=== PATIENT | female | born 1985 | race Hispanic/Latino ===

== ENCOUNTER 2021-03-14 17:23 | Emergency (ER) | payer OTHER, SELFPAY ==
[2021-03-14] MEDS ORDERED: Ondansetron ODT 4 MG TAB ONE (19:05)
[2021-03-15 11:14] LABS: SARS-CoV-2 PCR by NAA Not Detected (NotDetected)
== END 2021-03-14 19:54 | disposition home or self-care (01) ==
LOC: ERS 17:23
DX: R11.2 Nausea with vomiting, unspecified (principal); R19.7 Diarrhea, unspecified; Z20.822 Contact with and (suspected) exposure to COVID-19
CPT/HCPCS: 96372; 99284; J0500; Q0162; U0003; U0005

== ENCOUNTER 2021-05-28 18:18 | Emergency (ER) | payer SELFPAY | END 2021-05-28 21:00 | disposition left against medical advice (07) | LOC: ERS 18:18 | DX: Z53.21 Procedure and treatment not carried out due to patient leaving prior to being seen by health care provider (principal) ==